=== PATIENT | female | born 1965 | race Caucasian/White ===

== ENCOUNTER 2017-05-11 09:45 | Emergency (ER) | payer SELFPAY ==
[~2017-05-11] VITALS: Ht 167.6 cm; Wt 70.0 kg
[~2017-05-11 09:45] MED LIST: HYDR-3580 PO; NAPR500 PO; PRAV10 PO; RANI150T PO
[2017-05-11 09:47] VITALS: BP 142/97; PULSE 94; RESP 16; TEMP 97.8; O2SAT 99
[2017-05-11] MEDS ORDERED: AZIT250T3 PO (11:00)
--- NOTE | 2017-05-11 11:01 | PD ---
HPI Chief Complaint: Skin Problem Time Seen by Provider: 10:51 Travel History International Travel<30 days: No Contact w/Intl Traveler<30days: No Traveled to known affect area: No History of Present Illness HPI This is a 51-year-old female who presents to the emergency department with swollen lymph nodes in her right neck that's been going on for 4 days, constant , moderate severity associated some itching of her neck. She denies any fevers or chills. She's been taking Benadryl but it has not been helping. She does have a little wound adjacent to the swelling and she's not sure if she got bit by a bug. She says she doesn't have any cats or animals at home. PFSH Past Medical History Diminished Hearing: No Immunizations Current: Yes Menopausal: Yes : 4 Para: 3 : 1 Tubal Ligation: Yes Past Surgical History Eye Surgery: Yes Other Surgery: Yes (L. KNEE SURGERY, R ELBOW SURGERY ) Social History Alcohol Use: Yes (OCCASIONALLY ) Tobacco Use: Yes (2 CIGS PER DAY ) Substance Use: Yes (MARIJUANA ON OCCASION ) Allergies-Medications (Allergen,Severity, Reaction): Coded Allergies: Codeine (Verified Allergy, Severe, ITCHING, 09/10/16) Penicillin (Verified Allergy, Severe, CHILDHOOD ALLERGY, 09/10/16) Reported Meds & Prescriptions Reported Meds & Active Scripts Active Naprosyn (Naproxen) 500 Mg Tab 500 Mg PO BID PRN Pravastatin Sodium 10 Mg Tab 1 Tab PO HS Ranitidine 150 mg (Ranitidine HCl) 150 Mg Tab 1 Tab PO BID Reported Hydrocodone/Acetaminophen 7.5 mg/325 mg 1 Tab 1 Tab PO Q4H PRN Review of Systems Except as stated in HPI: all other systems reviewed are Neg Physical Exam Narrative GENERAL:Well appearing, no acute distress SKIN: Small 2 cm area of erythema and warmth on the right neck consistent with a possible bug bite HEAD: Atraumatic. Normocephalic. EYES: Pupils equal and round. No injection or drainage. ENT: Moist mucous membranes. Two swollen tender lymph nodes in the anterior cervical chain NECK: Trachea midline. CARDIOVASCULAR: Regular rate and rhythm. No murmur appreciated. RESPIRATORY: Clear to auscultation. Breath sounds equal bilaterally. GASTROINTESTINAL: Abdomen soft, non-tender, nondistended. MUSCULOSKELETAL: No obvious deformities. NEUROLOGICAL: Awake and alert. No obvious cranial nerve deficits. Moving all extremities. PSYCHIATRIC: Appropriate mood and affect; insight and judgment normal. Data Data Last Documented VS Vital Signs Date Time Temp Pulse Resp B/P Pulse Ox O2 Delivery O2 Flow Rate FiO2 05/11/17 09:47 97.8 94 16 142/97 99 [facility] Medical Decision Making Medical Screen Exam Complete: Yes Emergency Medical Condition: Yes Differential Diagnosis Scratch disease, lymphadenitis, reactive lymphadenopathy Narrative Course This is a 51-year-old female who presents to the emergency department with swollen lymph nodes in her right neck with some skin changes. I suspect she has a reactive lymphadenopathy secondary to an insect bite. We will empirically treat her with antibiotics for possible cat scratch disease given her clinical presentation. She is nontoxic appearing and appropriate for outpatient management. Diagnosis Primary Impression: Reactive cervical lymphadenopathy Patient Instructions: General Instructions Additional Instructions: If you develop high fevers, worsening swelling or difficulty swallowing or breathing return to the emergency department. Follow up with your primary care physician in one week if your symptoms have not improved. Med/Other Pt SpecificInfo: Prescription(s) given Scripts Azithromycin 250 Mg [id number] Mg PO DIRECTED #6 TAB Take 2 tabs (500 mg) on day 1 then 1 tab daily x 4 days. Prov:Laura Phillips MD 05/11/17 Disposition: 01 DISCHARGE HOME Condition: Stable Laura Phillips MD May 11, 2017 11:01
== END 2017-05-11 11:27 | disposition home or self-care (01) ==
LOC: NEPD 09:45
DX: R59.1 Generalized enlarged lymph nodes (principal)
CPT/HCPCS: 99283

== ENCOUNTER 2017-07-20 12:21 | Emergency (ER) | payer SELFPAY ==
[~2017-07-20] VITALS: Ht 170.2 cm; Wt 68.0 kg
[~2017-07-20 12:21] MED LIST changes: +AZIT250T3 PO; -HYDR-3580 PO; -NAPR500 PO; -PRAV10 PO; -RANI150T PO
--- NOTE | 2017-07-20 12:27 | PD ---
Physical Exam Date Seen by Provider: Jul 20, 2017 Time Seen by Provider: 12:26 Narrative Pt reports rash on her ear, neck and chest. Symptoms have been ongoing for 2 weeks. Pt states it is itchy. She reports trialing OTC therapy with no relief. VSS awaiting bed placement. MDM Supervised Visit with NIDHI: Geovanna León Jul 20, 2017 12:27
[2017-07-20] MEDS ORDERED: PRED-503 PO (12:42)
[2017-07-20] MEDS ORDERED: CLIN1CAP5 PO (12:42)
--- NOTE | 2017-07-20 12:43 | PD ---
HPI Chief Complaint: ENT Complaint Time Seen by Provider: 12:39 Travel History International Travel<30 days: No Contact w/Intl Traveler<30days: No Traveled to known affect area: No History of Present Illness HPI 51-year-old female presents to emergency Department with complaint of an itchy rash to her scalp, bilateral ears, neck, chest, and bilateral shoulders 2 weeks. Says the rash started on her left ear with severe itchiness. Denies fever, vomiting. Denies airway edema, tongue edema, shortness of breath, wheezing. Denies new detergents, soaps, shampoos, conditioners, lotions, medications, foods, environmental exposures. Has tried multiple over-the- counter medications for symptom management. No one else with similar symptoms. Up-to-date on tetanus vaccination. Symptoms are mild in severity. Allergies to codeine and penicillin. Has no other medical complaints. No other modifying factors or associated signs and symptoms. PFSH Past Medical History Diminished Hearing: No Immunizations Current: Yes ?: Not Menopausal: Yes : 4 Para: 3 Miscarriage: 0 : 1 Tubal Ligation: Yes Past Surgical History Eye Surgery: Yes Other Surgery: Yes (L. KNEE SURGERY, R ELBOW SURGERY ) Social History Alcohol Use: Yes (OCCASIONALLY ) Tobacco Use: Yes (2 CIGS PER DAY ) Substance Use: Yes (MARIJUANA ON OCCASION ) Allergies-Medications (Allergen,Severity, Reaction): Coded Allergies: codeine (Unverified Allergy, Severe, ITCHING, 07/08/17) penicillin G (Unverified Allergy, Severe, CHILDHOOD ALLERGY, 07/08/17) Reported Meds & Prescriptions Reported Meds & Active Scripts Active Deltasone (Prednisone) 20 Mg Tab 40 Mg PO DAILY 5 Days Clindamycin (Clindamycin HCl) 150 Mg Cap 450 Mg PO Q6H 10 Days Azithromycin 250 Mg Tab 250 Mg PO DIRECTED Take 2 tabs (500 mg) on day 1 then 1 tab daily x 4 days. Review of Systems Except as stated in HPI: all other systems reviewed are Neg Physical Exam Narrative GENERAL: Well-nourished, well-developed female patient, in no acute distress; afebrile, nontoxic-appearing SKIN: Warm and dry. Generalized erythremic pimple-like rash to scalp, neck, chest, bilateral shoulders. Left ear is edematous and erythematous with excoriations noted to the posterior aspect of the ear; no drainage. I see no signs of lice in the hair. HEAD: Atraumatic. Normocephalic. EYES: Pupils equal and round. No scleral icterus. No injection or drainage. ENT: Mucosa pink and moist. Airway patent. NECK: Trachea midline. CARDIOVASCULAR: Regular rate. RESPIRATORY: No accessory muscle use. GASTROINTESTINAL: Flat. MUSCULOSKELETAL: No obvious deformities. No clubbing. No cyanosis. No edema. NEUROLOGICAL: Awake and alert. Oriented 3. No obvious cranial nerve deficits. Motor grossly within normal limits. Normal speech. PSYCHIATRIC: Appropriate mood and affect; insight and judgment normal. MDM Medical Decision Making Medical Screen Exam Complete: Yes Emergency Medical Condition: Yes Medical Record Reviewed: Yes Differential Diagnosis Scabies, lice, dermatitis, nonspecific rash, cellulitis Narrative Course 51-year-old female with a rash and nonspecific skin eruption and cellulitis of the left ear. Patient is afebrile and nontoxic-appearing. She denies fever, vomiting. Patient provided [facility] information sheet for follow-up. Instructed patient to follow up with dermatology. Clindamycin, Deltasone prescribed for home. Instructed patient to continue Benadryl as instructed not seated for itching/rash. Instructed patient to follow up with primary care provider. Patient verbalizes understanding and agreement with treatment plan. Patient is medically cleared and stable for discharge. Discussed reasons to return to the emergency department. Patient agrees with treatment plan. The patients vital signs are stable and the patient is stable for outpatient follow- up and treatment. Patient discharged home, stable and in no acute distress. Diagnosis Primary Impression: Rash and nonspecific skin eruption Additional Impression: Cellulitis of left ear Referrals: [facility] Informatics Manager Primary Care Physician Patient Instructions: Acute Rash (ED), Cellulitis (ED), General Instructions Departure Forms: Tests/Procedures, Work Release Enter return to work date: Jul 22, 2017 Additional Instructions: Take oral steroids as prescribed [id number] topicals to reduce itch Benadryl as directed and as needed to reduce itch Follow-up with your primary care provider Follow-up with dermatology Return to the emergency department immediately with worsening of symptoms Med/Other Pt SpecificInfo: Prescription(s) given Scripts Prednisone (Deltasone) 20 Mg Tab 40 MG PO DAILY for 5 Days, TAB 0 Refills Prov: Anahy Garner 07/20/17 Clindamycin (Clindamycin) 150 Mg Cap 450 MG PO Q6H for Infection for 10 Days, CAP 0 Refills Prov: Anahy Garner 07/20/17 Disposition: 01 DISCHARGE HOME Condition: Stable Anahy Garner Jul 20, 2017 12:43
[2017-07-20 12:53] VITALS: BP 152/78; PULSE 67; RESP 18; TEMP 97.7; O2SAT 96
== END 2017-07-20 13:11 | disposition home or self-care (01) ==
LOC: NEPK 12:21
DX: R21 Rash and other nonspecific skin eruption (principal); H60.12 Cellulitis of left external ear
CPT/HCPCS: 99284

== ENCOUNTER 2017-08-08 15:17 | Emergency (ER) | payer SELFPAY ==
[~2017-08-08] VITALS: Ht 167.6 cm; Wt 75.0 kg
[~2017-08-08 15:17] MED LIST changes: +CLIN1CAP5 PO; +PRED-503 PO
[2017-08-08 15:20] VITALS: BP 154/82; PULSE 83; RESP 17; TEMP 98.6; O2SAT 98
--- NOTE | 2017-08-08 16:18 | PD ---
HPI Chief Complaint: Skin Problem Time Seen by Provider: 16:17 Travel History International Travel<30 days: No Contact w/Intl Traveler<30days: No Traveled to known affect area: No History of Present Illness HPI 51 YO F presents to the ED for evaluation of 3 week history of pustular, burning, pruritic rash of the ear and neck. Patient states that the rash began on her left ear and has now spread to her neck and hairline. She denies F/C, N/ V, history of MRSA. She has been seen twice and treated with clindamycin, oral prednisone and permethrin creme with no improvement of symptoms. PFSH Past Medical History Diminished Hearing: No Immunizations Current: Yes Menopausal: Yes : 4 Para: 3 Miscarriage: 0 : 1 Tubal Ligation: Yes Past Surgical History Eye Surgery: Yes Other Surgery: Yes (L. KNEE SURGERY, R ELBOW SURGERY ) Social History Alcohol Use: Yes (OCCASIONALLY ) Tobacco Use: Yes (2 CIGS PER DAY ) Substance Use: Yes (MARIJUANA ON OCCASION ) Allergies-Medications (Allergen,Severity, Reaction): Coded Allergies: codeine (Unverified Allergy, Severe, ITCHING, 07/08/17) penicillin G (Unverified Allergy, Severe, CHILDHOOD ALLERGY, 07/08/17) Reported Meds & Prescriptions Reported Meds & Active Scripts Active Hydroxyzine HCl 50 Mg Tab 50 Mg PO TID 7 Days Acyclovir 800 Mg Tab 800 Mg PO 5 TIMES A DAY 10 Days Bactrim DS (Sulfamethoxazole-Trimethoprim) 800-160 Mg Tab 1 Tab PO BID Review of Systems Except as stated in HPI: all other systems reviewed are Neg Physical Exam Narrative GENERAL: Well-nourished, well-developed white female no acute distress. SKIN: Focused skin assessment warm/dry. There is a moist, erythematous, nonblanching, pustular, weeping rash of the left ear, and right posterior lateral neck. There are honey colored crusts of the area. There are 2 small pustular areas of the right ear. There are scattered, subcentimeter pustules just below the hairline. Rash is distributed in the T2 or T3 distribution. HEAD: Normocephalic. EYES: No scleral icterus. No injection or drainage. NECK: Supple, trachea midline. No JVD or lymphadenopathy. CARDIOVASCULAR: Regular rate and rhythm without murmurs, gallops, or rubs. RESPIRATORY: Breath sounds equal bilaterally. No accessory muscle use. GASTROINTESTINAL: Abdomen soft, non-tender, nondistended. MUSCULOSKELETAL: No cyanosis, or edema. BACK: Nontender without obvious deformity. No CVA tenderness. Data Data Last Documented VS Vital Signs Date Time Temp Pulse Resp B/P (MAP) Pulse Ox O2 Delivery O2 Flow Rate FiO2 08/08/17 15:59 16 08/08/17 15:20 98.6 83 154/82 (106) 98 MDM Medical Decision Making Medical Screen Exam Complete: Yes Emergency Medical Condition: Yes Differential Diagnosis Impetigo versus shingles versus nonspecific rash versus other Narrative Course 51 YO F presents to the ED for evaluation of 3 week history of pustular, burning, pruritic rash of the ear and neck. Patient states that the rash began on her left ear and has now spread to her neck and hairline. She denies F/C, N/ V, history of MRSA. She has been seen twice and treated with clindamycin, oral prednisone and permethrin creme with no improvement of symptoms. Vitals reviewed. The patient is tearful during the exam, states that she is very frustrated that she is not improved. There is a moist, erythematous, nonblanching, pustular, weeping rash of the left ear, and right posterior lateral neck. There are honey colored crusts of the area. There are 2 small pustular areas of the right ear. There are scattered, subcentimeter pustules just below the hairline. Rash is distributed in the T2 or T3 distribution. We' ll cover for herpes zoster as well as impetigo/ secondary infection. Patient's prescribed acyclovir, Bactrim. I also prescribed Vistaril for the itching. I cautioned her that this causes drowsiness. She is instructed take the medication as prescribed, take cool showers to avoid worsening, with exposure to women and unvaccinated children, follow-up with a pouncer machine. We discussed reasons to return to the ED. She is agreeable with the care plan. She is stable and discharged home. Diagnosis Primary Impression: Pustular rash Referrals: [employer] Patient Instructions: General Instructions, Impetigo (ED), Shingles (ED) Additional Instructions: Rest, hydrate. Cool showers to avoid worsening of the itch. Avoid handling the rash as possible. Wash hands before and after touching the rash. Avoid exposure to women and young unvaccinated children. Take medication as prescribed, even if your symptoms resolve. Hydroxyzine can cause drowsiness, use caution. Follow-up with the pouncer machine. Return to the ED for any urgent or emergent medical condition. Med/Other Pt SpecificInfo: Prescription(s) given Scripts Hydroxyzine HCl (Hydroxyzine HCl) 50 Mg Tab 50 MG PO TID for Itching for 7 Days, TAB 0 Refills Prov: Dara Carlos DO 08/08/17 Acyclovir (Acyclovir) 800 Mg Tab 800 MG PO 5 TIMES A DAY for Mgmt Viral Infection for 10 Days, TAB 0 Refills Prov: Dara Carlos DO 08/08/17 Sulfamethoxazole-Trimethoprim (Bactrim DS) 800-160 Mg Tab 1 TAB PO BID for Infection, #14 TAB 0 Refills Prov: Dara Carlos DO 08/08/17 Disposition: 01 DISCHARGE HOME Condition: Stable Mya Chase Aug 08, 2017 16:18
[2017-08-08] MEDS ORDERED: BACT800T5 PO (16:58)
[2017-08-08] MEDS ORDERED: HYDR50TA94 PO (16:58)
[2017-08-08] MEDS ORDERED: ACYC800T PO (16:58)
== END 2017-08-08 17:10 | disposition home or self-care (01) ==
LOC: NEPE 15:17
DX: L08.0 Pyoderma (principal); F17.210 Nicotine dependence, cigarettes, uncomplicated; Z88.5 Allergy status to narcotic agent; Z88.0 Allergy status to penicillin
CPT/HCPCS: 99284